=== PATIENT | female | born 1940 | race Caucasian/White ===

== ENCOUNTER → 2018-10-04 | Outpatient (REF) | payer MEDICARE, OTHER | LOC: M LAB LCGH 08:54 | PROVIDERS: ATTEND Obstetrics & Gynecology | DX: N84.1 Polyp of cervix uteri (principal) ==

== ENCOUNTER → 2020-04-18 | Outpatient (CLI) | payer MEDICARE, BC | LOC: M LABSMTC 11:51 | PROVIDERS: ATTEND Orthopaedic Surgery | DX: Z01.812 Encounter for preprocedural laboratory examination (principal); Z20.828 Contact with and (suspected) exposure to other viral communicable diseases ==